=== PATIENT | male | born 1975 | race Caucasian/White ===

== ENCOUNTER 2017-02-26 16:37 | Emergency (ER) | payer BC ==
[2017-02-26 16:50] VITALS: BP 153/98
--- NOTE | 2017-02-26 17:03 | UC ---
Lower Extremity/Ankle HPI - HPI Summary HPI Summary: hx of gout, having an infalmmation of the right great toe and ankle, stiffness and pain. - History of Current Complaint Chief Complaint: UCLowerExtremity Stated Complaint: RT FOOT PAIN Time Seen by Provider: 02/26/17 16:42 Hx Obtained From: Patient Onset/Duration: Sudden Onset, Lasting Days Severity Initially: Mild Severity Currently: Moderate Aggravating Factor(s): Standing, Nothing Alleviating Factor(s): Nothing Able to Bear Weight: Yes - Risk Factors Gout Risk Factors: Age Over 40, Male, Hypertension - Allergies/Home Medications Allergies/Adverse Reactions: Allergies Allergy/AdvReac Type Severity Reaction Status Date / Time No Known Allergies Allergy Verified 02/26/17 16:43 Home Medications: Home Medications amLODIPine TAB* [Norvasc 5 mg TAB*] 5 mg DAILY 02/26/17 [History Confirmed 02/26] PMH/Surg Hx/FS Hx/Imm Hx Previously Healthy: Yes - Surgical History Surgical History: Yes Surgery Procedure, Year, and Place: RIGHT FOOT- PLATE - Family History Known Family History: Positive: Cardiac Disease, Hypertension - Social History Alcohol Use: None Substance Use Type: None Smoking Status (MU): Never Smoked Tobacco - Immunization History Most Recent Influenza Vaccination: none 2017 Review of Systems Constitutional: Negative Skin: Negative Eyes: Negative ENT: Negative Respiratory: Negative Cardiovascular: Negative Gastrointestinal: Negative Genitourinary: Negative Motor: Negative Neurovascular: Negative Musculoskeletal: Arthralgia, Decreased ROM Neurological: Negative Psychological: Negative All Other Systems Reviewed And Are Negative: Yes Physical Exam Triage Information Reviewed: Yes Appearance: Well-Appearing, Well-Nourished, Pain Distress Vital Signs: Initial Vital Signs Temp 97.8 F 02/26/17 16:44 Pulse 75 02/26/17 16:44 Resp 16 02/26/17 16:44 BP 153/98 02/26/17 16:44 Pulse Ox 99 02/26/17 16:44 Vital Signs Reviewed: Yes Eye Exam: Normal ENT Exam: Normal ENT: Positive: Hearing grossly normal, Pharynx normal, TMs normal Dental Exam: Normal Neck exam: Normal Neck: Positive: Supple, Nontender, No Lymphadenopathy Respiratory Exam: Normal Respiratory: Positive: Chest non-tender, Lungs clear, Normal breath sounds Cardiovascular Exam: Normal Cardiovascular: Positive: RRR, No Murmur, Brisk Capillary Refill Abdominal Exam: Normal Abdomen Description: Positive: Nontender, No Organomegaly, Soft Bowel Sounds: Positive: Present Musculoskeletal: Positive: Strength Intact, ROM Intact, Edema @ Neurological Exam: Normal Neurological: Positive: Alert, Muscle Tone Normal Psychological Exam: Normal Skin: Positive: Other - slight erythema of the foot noted, Lower Extremity Course/Dx - Course Course Of Treatment: hx obtained, exam performed ,meds reviewed, treated for gout exacerbation and adivsed to follow up with PCP this week - Differential Dx/Diagnosis Differential Diagnosis/HQI/PQRI: Contusion, Gout, Infection, Sprain, Strain Provider Diagnoses: gout in right foot Discharge - Discharge Plan Condition: Stable Disposition: HOME Prescriptions: predniSONE TAB* [Deltasone TAB*] 20 mg PO DAILY #11 tab Patient Education Materials: Gout (ED) Additional Instructions: 1. take the medication as prescribed. 2.follow up with your doctor for further evaluation
== END 2017-02-26 17:24 | disposition home or self-care (01) ==
LOC: UCCORT 16:37
DX: M10.9 Gout, unspecified (principal)
CPT/HCPCS: 99212; G0463

== ENCOUNTER 2017-09-24 10:10 | Emergency (ER) | payer BC ==
[2017-09-24 10:28] VITALS: BP 137/89
--- NOTE | 2017-09-24 11:24 | UC ---
Lower Extremity/Ankle HPI - HPI Summary HPI Summary: 41 yo WM c/o left 1st MP gouty attack, last year it was in left foot, has difficulty bearing weight - History of Current Complaint Chief Complaint: UCLowerExtremity Stated Complaint: LEFT FOOT PAIN Time Seen by Provider: 09/24/17 10:43 Onset/Duration: Sudden Onset Severity Currently: Moderate Pain Intensity: 8 Aggravating Factor(s): Standing Alleviating Factor(s): Rest - Risk Factors Gout Risk Factors: Age Over 40, Male, Obesity - Allergies/Home Medications Allergies/Adverse Reactions: Allergies Allergy/AdvReac Type Severity Reaction Status Date / Time No Known Allergies Allergy Verified 09/24/17 10:28 Home Medications: Home Medications Metoprolol Tartrate [Lopressor] 50 mg PO DAILY 09/24/17 [History Confirmed 09/24] PMH/Surg Hx/FS Hx/Imm Hx Previously Healthy: Yes - Surgical History Surgical History: Yes Surgery Procedure, Year, and Place: RIGHT FOOT- PLATE - Family History Known Family History: Positive: Cardiac Disease, Hypertension - Social History Alcohol Use: Occasionally Substance Use Type: None Smoking Status (MU): Never Smoked Tobacco - Immunization History Most Recent Influenza Vaccination: none 2016 Review of Systems Constitutional: Negative Skin: Negative Eyes: Negative ENT: Negative Respiratory: Negative Cardiovascular: Negative Gastrointestinal: Negative Genitourinary: Negative Motor: Negative Neurovascular: Negative Musculoskeletal: Arthralgia - recurrent gouty flare Neurological: Negative Psychological: Negative All Other Systems Reviewed And Are Negative: Yes Physical Exam Triage Information Reviewed: Yes Appearance: Pain Distress Vital Signs: Initial Vital Signs Temp 36.4 C 09/24/17 10:23 Pulse 80 09/24/17 10:23 Resp 18 09/24/17 10:23 BP 137/89 09/24/17 10:23 Pulse Ox 100 09/24/17 10:23 Eye Exam: Normal ENT Exam: Normal Dental Exam: Normal Neck exam: Normal Respiratory Exam: Normal Cardiovascular Exam: Normal Musculoskeletal: Positive: Other: - erythema, exquistie TTP on left 1st MTJ, mild swelling Neurological Exam: Normal Psychological Exam: Normal Lower Extremity Course/Dx - Differential Dx/Diagnosis Provider Diagnoses: left 1st MT gouty flare Discharge - Sign-Out/Discharge Documenting (check all that apply): Discharge/Admit/Transfer - Discharge Plan Condition: Stable Disposition: HOME Prescriptions: Indomethacin CAP* [Indocin CAP*] 50 mg PO TID PRN 10 Days #30 cap PRN Reason: Pain Patient Education Materials: Gout (ED), Low Purine Diet (ED) Referrals: NO Roldan [Primary Care Provider] - - Billing Disposition and Condition Condition: STABLE Disposition: HOME
== END 2017-09-24 11:24 | disposition home or self-care (01) ==
LOC: UCCORT 10:10
DX: M10.9 Gout, unspecified (principal)
CPT/HCPCS: 99212; G0463

== ENCOUNTER 2018-02-18 15:35 | Emergency (ER) | payer BC ==
[2018-02-18 16:07] VITALS: BP 147/100
[2018-02-18] MEDS ORDERED: Triamcinolone Acetonide* 40 MG/ML 1 ML VIAL INTRAARTIC ONE (16:18)
[2018-02-18] MEDS ORDERED: Lidocaine 1% MPF* 2 ML VIAL INJ ONE (16:18)
[2018-02-18] MEDS ORDERED: Bupivacaine 0.5%* 50 ML VIAL INJ ONE (16:18)
--- NOTE | 2018-02-18 16:18 | UC ---
Shoulder Pain HPI - HPI Summary HPI Summary: C/O right shoulder pain x 3 days. Worse every day. Unable to lift arm up. No numbness or weakness - History of Current Complaint Chief Complaint: UCUpperExtremity Stated Complaint: RT SHOULDER INJURY Hx Obtained From: Patient Onset/Duration: Sudden Onset, Lasting Days - 3, Worse Since - onset Timing: Constant Severity Initially: Moderate Severity Currently: Severe Location Of Pain: Is Discrete @ - right shoulder Pain Intensity: 9 Character: Sharp, Dull, Aching Aggravating Factor(s): Movement, Flexion, Internal Rotation, External Rotation, Abduction Alleviating Factor(s): Nothing Associated Signs And Symptoms: Positive: Negative Related History: Dominant Hand Right - Allergies/Home Medications Allergies/Adverse Reactions: Allergies Allergy/AdvReac Type Severity Reaction Status Date / Time No Known Allergies Allergy Verified 02/18/18 16:08 PMH/Surg Hx/FS Hx/Imm Hx Cardiovascular History: Hypertension - Surgical History Surgical History: Yes Surgery Procedure, Year, and Place: RIGHT FOOT- PLATE - Family History Known Family History: Positive: Cardiac Disease, Hypertension - Social History Occupation: Employed Full-time Lives: With Family Alcohol Use: Occasionally Substance Use Type: None Smoking Status (MU): Never Smoked Tobacco - Immunization History Most Recent Influenza Vaccination: none 2017 Review of Systems Musculoskeletal: Arthralgia - right shoulder Is Patient Immunocompromised?: No All Other Systems Reviewed And Are Negative: Yes Physical Exam Triage Information Reviewed: Yes Appearance: Well-Appearing, Pain Distress, Obese Vital Signs: Initial Vital Signs Temp 98.8 F 02/18/18 16:03 Pulse 72 02/18/18 16:03 Resp 18 02/18/18 16:03 BP 147/100 02/18/18 16:03 Pulse Ox 99 02/18/18 16:03 Vital Signs Reviewed: Yes Eyes: Positive: Conjunctiva Clear Neck: Positive: Supple Respiratory Exam: Normal Cardiovascular Exam: Normal Musculoskeletal: Positive: Strength Limited @ - internal/ external/ flexion/ extension with pain., ROM Limited @ - right shoulder flexion/ extension/ abduction, Other: - Tender around the shoulder cap. Neurological Exam: Normal - Normal sensation to pinprick in the right shoulder/ upper arm Psychological Exam: Normal Skin Exam: Normal Procedures - Procedure Summary Procedure Summary: Right subacromial injection: Consent and time out done. Betadine prep. 8cc total injected from a posterior approach. 1cc kenalog 40, 3cc lidocaine 1% and 4cc 0.25% marcaine. No improvement in pain symptoms after injection. Diagnostics - Radiology No standard instances Xray Interpretation: No Acute Changes Radiology Interpretation Completed By: ED Physician, Radiologist Shoulder Course/Dx - Course Course Of Treatment: Subacromial bursa injection without relief. Some relief with the toradol. - Differential Dx/Diagnosis Differential Diagnosis/HQI/PQRI: Arthritis, Bursitis, Rotator Cuff Injury, Tendonitis Provider Diagnoses: Right shoulder pain. Discharge - Sign-Out/Discharge Documenting (check all that apply): Patient Departure All imaging exams completed and their final reports reviewed: Yes - Discharge Plan Condition: Stable Disposition: HOME Prescriptions: HYDROcodone/ACETAMIN 5-325 MG* [Big Pool 5-325 TAB*] 1 tab PO Q4H PRN #20 tab MDD 6 PRN Reason: Pain - Moderate To Severe Ketorolac TAB * [Toradol TAB *] 10 mg PO Q6H PRN #20 tab PRN Reason: Pain - Mild To Moderate Patient Education Materials: Shoulder Pain (ED), Cortisone (Injection), Ketorolac (By injection) Forms: *Work Release Referrals: NO Roldan [Primary Care Provider] - Kamlesh Tsang MD [Medical Doctor] - 2 Days (If shoulder pain is not better.) - Billing Disposition and Condition Condition: STABLE Disposition: Home
[2018-02-18] MEDS ORDERED: Bupivacaine 0.25% SDV PF* 10 ML VIAL INJ ONE (16:23)
[2018-02-18] MEDS ORDERED: Ketorolac INJ* 60 MG/2 ML VIAL IM ONE (16:36)
--- NOTE | 2018-02-18 17:03 | RAD ---
HISTORY: Pain, trauma COMPARISONS: None VIEWS: 4 , Frontal internal rotation, external rotation, outlet, and axillary views of the right shoulder. There is minimal excursion with internal and external rotation. FINDINGS: BONE DENSITY: Normal. BONES: There is no displaced fracture. JOINTS: There is no arthropathy. ALIGNMENT: There is no dislocation. SOFT TISSUES: Unremarkable. OTHER FINDINGS: None. IMPRESSION: NO ACUTE OSSEOUS INJURY. IF SYMPTOMS PERSIST, RECOMMEND REPEAT IMAGING.
== END 2018-02-18 17:29 | disposition home or self-care (01) ==
LOC: UCCORT 15:35
DX: M25.511 Pain in right shoulder (principal); I10 Essential (primary) hypertension
CPT/HCPCS: 20605; 96372; 99213; G0463; J1885; J3301; J3490

== ENCOUNTER 2019-01-20 10:55 | Emergency (ER) | payer BC ==
--- NOTE | 2019-01-20 12:08 | UC ---
Upper Extremity HPI - HPI Summary HPI Summary: L wrist pain for approx 5 days. Feels its swollen and achey. denies injury or fall. he's not sure if he has gout. has hx of one gout episode in his R large toe. He has psoriasis. Also c/o L/R ankle soreness. he will be seeing rheum tomorrow.\ - History of Current Complaint Chief Complaint: UCGeneralIllness Stated Complaint: LEFT WRIST PAIN Time Seen by Provider: 01/20/19 12:08 Hx Obtained From: Patient Onset/Duration: Gradual Onset Severity Initially: Moderate Severity Currently: Moderate Character: Aching Aggravating Factor(s): Movement Alleviating Factor(s): Nothing - Allergies/Home Medications Allergies/Adverse Reactions: Allergies Allergy/AdvReac Type Severity Reaction Status Date / Time No Known Allergies Allergy Verified 01/20/19 12:16 PMH/Surg Hx/FS Hx/Imm Hx - Additional Past Medical History Additional PMH: psoriasis Previously Healthy: Yes - Surgical History Surgical History: Yes Surgery Procedure, Year, and Place: RIGHT FOOT- PLATE - Family History Known Family History: Positive: Cardiac Disease, Hypertension - Social History Alcohol Use: Occasionally Substance Use Type: None Smoking Status (MU): Never Smoked Tobacco - Immunization History Most Recent Influenza Vaccination: none 2017 Review of Systems All Other Systems Reviewed And Are Negative: Yes Constitutional: Negative: Fever Skin: Negative: Rash, Bruising Neurovascular: Negative: Decreased Sensation Musculoskeletal: Positive: Arthralgia - L wrist Neurological: Negative: Weakness, Paresthesia, Numbness Physical Exam Triage Information Reviewed: Yes Appearance: Well-Appearing Vital Signs Reviewed: Yes Respiratory Exam: Normal Cardiovascular Exam: Normal Musculoskeletal: Positive: Edema @ - L wrist w/ mild warmth and little erythema. Somewhat tender but has FROM. good pulses Upper Extremity Course/Dx - Course Course Of Treatment: L wrist pain w/ mild swelling and redness assoc. w/ bilat ankle pain which is not as bad. He initially thought it was Gout. given his hx of psoriasis suspect more psoriatic arthritis flare up. medrol dose pack for now and have asked him to discuss appropriate care for future flare up w/ his rhuem. - Differential Dx/Diagnosis Provider Diagnosis: Multiple joint pain Discharge ED - Sign-Out/Discharge Documenting (check all that apply): Patient Departure All imaging exams completed and their final reports reviewed: No Studies - Discharge Plan Condition: Good Disposition: HOME Prescriptions: methylPREDNISolone [Medrol Dosepak 4 MG*] 0 mg PO .SEE KAAY INSTRUCTION #1 packet Patient Education Materials: Arthritis (ED) Referrals: No Primary Care Phys,NOPCP [Primary Care Provider] - Additional Instructions: please keep your appt with your sports medicine coordinator - Billing Disposition and Condition Condition: GOOD Disposition: Home
[2019-01-20 12:30] VITALS: BP 146/105
== END 2019-01-20 12:47 | disposition home or self-care (01) ==
LOC: UCCORT 10:55
DX: M25.532 Pain in left wrist (principal)
CPT/HCPCS: 99212; G0463

== ENCOUNTER 2019-05-14 10:32 | Emergency (ER) | payer BC ==
--- OUTSIDE RECORDS SUMMARY | 2019-05-14 11:31 | XMS REPORT | Continuity of Care Document ---
:1975 External Reference #:[id number] Author Name Laurel Whitlock M.D. (transmitted by agent of provider Dora Lopez) Address [address] [place] [address] [place] [address] Care Team Providers Name Role Phone Nahomi Fields DO - Internal Care Team Information Outsole Skiver [phone] Medicine Brynn Sousa MD - Family Medicine Care Team Information Outsole Skiver [phone] Problems Active Problems Provider Date Aseptic necrosis of head of femur Laurel Whitlock M.D. Onset: 05/29/2018 Social History Type Date Description Comments Sex Unknown ETOH Use Occasionally consumes alcohol Recreational Drug Use Denies Drug Use Tobacco Use Start: Unknown Patient has never smoked Smoking Status Reviewed: 03/23/19 Patient has never smoked Exercise Type/Frequency Exercises regularly Allergies, Adverse Reactions, Alerts Description No Known Drug Allergies Medications Active Medications SIG Qnty Indications Ordering Provider Date Indomethacin 1 by mouth three 20caps Unknown 50mg times a day as Capsules needed Metoprolol Succinate 1 by mouth every Unknown ER day Tablets ER 24HR Meloxicam 1 by mouth every Unknown 15mg Tablets day Medications Administered in Office Medication SIG Qnty Indications Ordering Provider Date Depomedrol 40MG Laurel Whitlock M.D. 03/23/2019 Injection No Injection Laurel Whitlock M.D. 09/08/2018 Injection Depomedrol 40MG Laurel Whitlock M.D. 09/08/2018 Injection Depomedrol 40MG Laurel Whitlock M.D. 06/05/2018 Injection Immunizations Description No Information Available Vital Signs Date Vital Result Comment 03/23/2019 8:01am Height 74 inches 6'2" Weight 275.00 lb Heart Rate 70 /min BP Systolic 162 mmHg BP Diastolic 102 mmHg Respiratory Rate 16 /min Body Temperature 97.9 F Pain Level 7 O2 % BldC Oximetry 95 % BMI (Body Mass Index) 35.3 kg/m2 09/08/2018 3:25pm Height 74 inches 6'2" Weight 262.00 lb Heart Rate 98 /min BP Systolic 124 mmHg BP Diastolic 88 mmHg Respiratory Rate 16 /min Body Temperature 97.8 F Pain Level 7 BMI (Body Mass Index) 33.6 kg/m2 Results Test Acquired Date Facility Test Result H/L Range Note Xray 03/23/2019 Customer Operations Representative In House Inj/Aspir Major JT Or Bursa <pending> W/ US Procedures Date Code Description Status 03/23/2019 23714 Inj/Aspir Major JT Or Bursa W/ US Completed Medical Devices Description No Information Available Encounters Description No Information Available Assessments Date Code Description Provider 03/23/2019 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 03/23/2019 M25.552 Pain in left hip Laurel Whitlock M.D. Plan of Treatment 03/23/2019 - Laurel Whitlock M.D.M87.052 Idiopathic aseptic necrosis of left femurFollow up:Follow up: Call Dr. Whitlock's Weaver Apprentice, Lea, to schedule surgery.M25.552 Pain in left hip Functional Status Description No Information Available Mental Status Description No Information Available Referrals Description No Information Available
[2019-05-14 11:52] VITALS: BP 158/109
--- NOTE | 2019-05-14 12:06 | UC ---
Lower Extremity/Ankle HPI - HPI Summary HPI Summary: 43 yo male with long hx of gout presents with severe right foot pain was recently on low dose pred which helped some no pred x 4 days has appt with submarine operator tomorrow - History of Current Complaint Chief Complaint: UCLowerExtremity Stated Complaint: RT FOOT COMP Time Seen by Provider: 05/14/19 11:44 Hx Obtained From: Patient Onset/Duration: Gradual Onset Severity Initially: Mild Severity Currently: Severe Pain Intensity: 8 Pain Scale Used: 0-10 Numeric Aggravating Factor(s): Standing, Ambulation Alleviating Factor(s): Rest, Elevation Able to Bear Weight: No Feet (Multiple View): 1 - pain 2 - pain - Allergies/Home Medications Allergies/Adverse Reactions: Allergies Allergy/AdvReac Type Severity Reaction Status Date / Time No Known Allergies Allergy Verified 05/14/19 11:44 Home Medications: Home Medications Ibuprofen [Advil] 800 mg PO DAILY 05/14/19 [History Confirmed 05/14/19] PMH/Surg Hx/FS Hx/Imm Hx Previously Healthy: Yes - gout Endocrine History: Dyslipidemia Cardiovascular History: Hypertension - Surgical History Surgical History: Yes Surgery Procedure, Year, and Place: RIGHT FOOT- PLATE - Family History Known Family History: Positive: Cardiac Disease, Hypertension - Social History Alcohol Use: Occasionally Substance Use Type: None Smoking Status (MU): Never Smoked Tobacco - Immunization History Most Recent Influenza Vaccination: none 2016 Review of Systems All Other Systems Reviewed And Are Negative: Yes Constitutional: Positive: Negative Skin: Positive: Negative Eyes: Positive: Negative ENT: Positive: Negative Respiratory: Positive: Negative Cardiovascular: Positive: Negative Gastrointestinal: Positive: Negative Genitourinary: Positive: Negative Motor: Positive: Negative Neurovascular: Positive: Negative Musculoskeletal: Positive: Arthralgia Neurological: Positive: Negative Psychological: Positive: Negative Physical Exam Triage Information Reviewed: Yes Appearance: Well-Appearing, No Pain Distress, Well-Nourished Vital Signs: Initial Vital Signs Temp 98.6 F 05/14/19 11:46 Pulse 72 05/14/19 11:46 Resp 20 05/14/19 11:46 BP 158/109 05/14/19 11:46 Pulse Ox 98 05/14/19 11:46 Vital Signs Reviewed: Yes Eyes: Positive: Conjunctiva Clear ENT: Positive: Hearing grossly normal. Negative: Nasal congestion, Nasal drainage Dental Exam: Normal Neck: Positive: Supple, Nontender, No Lymphadenopathy Respiratory: Positive: Lungs clear, Normal breath sounds, No respiratory distress Cardiovascular: Positive: RRR, No Murmur Musculoskeletal: Positive: Other: - see image Neurological: Positive: Alert Psychological Exam: Normal Skin: Positive: Other - warm right foot Lower Extremity Course/Dx - Differential Dx/Diagnosis Provider Diagnosis: Gouty arthritis Discharge ED - Sign-Out/Discharge Documenting (check all that apply): Patient Departure All imaging exams completed and their final reports reviewed: No Studies - Discharge Plan Condition: Stable Disposition: HOME Prescriptions: predniSONE [Prednisone 20 MG TAB] 60 mg PO DAILY #6 tab Patient Education Materials: Low Purine Diet (ED), Gout (ED) Referrals: No Primary Care Phys,NOPCP [Primary Care Provider] - Additional Instructions: see specialist tomorrow as planned - Billing Disposition and Condition Condition: STABLE Disposition: Home
[2019-05-14] MEDS ORDERED: HYDROcodone/ACETAMIN 5-325 MG* 1 TAB PO ONE (12:08)
== END 2019-05-14 12:30 | disposition home or self-care (01) ==
LOC: UCCORT 10:32
DX: M10.9 Gout, unspecified (principal); I10 Essential (primary) hypertension
CPT/HCPCS: 99212; G0463; J7512

== ENCOUNTER 2020-06-17 08:11 | Observation (INO) ==
[~2020-06-17 08:11] MED LIST: Buffered Lidocaine 1% SYRIN 1 ml INTRADERM ONE; Lactated Ringers 1000 ml BAG 1,000 ML IV SCH
[2020-06-17] MEDS ORDERED: ceFAZolin 1 GM ADVAN 1 GM ADDV.VIAL IVPB ONE (08:15)
[2020-06-17] MEDS ORDERED: ceFAZolin 2 GM PREMIX 2 GM/50 ML BAG ONE (08:15)
[2020-06-17] MEDS ORDERED: diPHENhydraMINE IV 50 MG/ML 1 ml VIAL (BENADRYL) ONE (08:25)
[2020-06-17] MEDS ORDERED: Midazolam 2 mg/2 ml VIAL 1 mg/ml 2 ml VIAL (2 mg) ONE (08:25)
[2020-06-17] MEDS ORDERED: fentaNYL 100 mcg/2 ml 50 MCG/ML VIAL ONE ×3 (08:25→14:18)
[2020-06-17] MEDS ORDERED: Propofol 10 MG/ML 20 ML BTL ONE ×2 (11:12→11:56)
[2020-06-17] MEDS ORDERED: Naloxone 0.4 mg VIAL 0.4 mg/ml 1 ml VIAL IV PRN (11:51)
[2020-06-17] MEDS ORDERED: diPHENhydraMINE IV 50 MG/ML 1 ml VIAL (BENADRYL) IV PRN ×2 (11:51→11:53)
[2020-06-17] MEDS ORDERED: diPHENhydraMINE 25 mg TAB PO PRN (11:53)
[2020-06-17] MEDS ORDERED: Lactulose 30 ml UDC PO PRN (11:53)
[2020-06-17] MEDS ORDERED: Ondansetron 4 mg VIAL 2 MG/ML 2 ml VIAL IV PRN (11:53)
[2020-06-17] MEDS ORDERED: Morphine 2 MG/ML SYRINGE IV PRN (11:53)
[2020-06-17] MEDS ORDERED: Magnesium Hydroxide LIQ 30 ML UDC PO PRN (11:53)
[2020-06-17] MEDS ORDERED: Ondansetron ODT 4 mg TAB 4 MG TAB PO PRN (11:53)
[2020-06-17] MEDS: fentaNYL 100 mcg/2 ml 50 MCG/ML VIAL IV PRN ×5 (13:12→14:19)
[2020-06-17] MEDS ORDERED: hydrALAZINE 20 mg/ml 1 ML Vial IV ONE (13:57)
[2020-06-17] MEDS ORDERED: hydrALAZINE 20 mg/ml 1 ML Vial IV IV SLOW PU ONE (14:16)
[2020-06-17] MEDS: Lactated Ringers 1000 ml BAG 1,000 ML IV SCH (15:06)
[2020-06-17] MEDS: ceFAZolin 1 GM ADVAN 1 GM in NS 0.9% 50 ML 50 ML IVPB SCH (18:33)
[2020-06-17] MEDS: Magnesium Hydroxide LIQ 30 ML UDC PO SCH (19:49)
[2020-06-17] MEDS: oxyCODONE/Acetamin 5/325 mg TAB PO PRN ×2 (19:50→23:48)
[2020-06-17] MEDS ORDERED: Metoprolol Succinate XL 200 mg TAB PO SCH (21:00)
[2020-06-18] MEDS: ceFAZolin 1 GM ADVAN 1 GM in NS 0.9% 50 ML 50 ML IVPB SCH ×2 (01:57→10:42)
[2020-06-18] MEDS: oxyCODONE/Acetamin 5/325 mg TAB PO PRN ×3 (03:52→13:15)
[2020-06-18] MEDS: Lactated Ringers 1000 ml BAG 1,000 ML IV SCH (03:53)
[2020-06-18 06:01] LABS: Hematocrit 38 % (42-52); Hemoglobin 12.8 g/dL (14.0-18.0); Mean Platelet Volume 8.2 fL (7.4-10.4); Platelet Count 183 10^3/uL (150-450)
[2020-06-18 06:22] LABS: BUN/Creatinine Ratio 25.6 (8-20); Calcium 8.7 mg/dL (8.6-10.3); EGFR African American 116.4 (>60); EGFR Non-African American 96.2 (>60); Potassium 4.2 mmol/L (3.5-5.0)
[2020-06-18] MEDS ORDERED: Vitamin THERAPEUTIC TAB PO SCH (09:00)
[2020-06-18] MEDS ORDERED: Metoprolol Succinate XL 200 mg TAB PO SCH (09:00)
[2020-06-18] MEDS: Magnesium Hydroxide LIQ 30 ML UDC PO SCH (09:07)
[2020-06-18 12:15] VITALS: BP 153/86
== END 2020-06-18 13:45 | disposition home or self-care (01) ==
LOC: SSU 08:11 → OR 08:11 → EDSTATUS 13:30
PROVIDERS: ADMIT Orthopaedic Surgery Adult Reconstructive Orthopaedic Surgery; ATTEND Orthopaedic Surgery Adult Reconstructive Orthopaedic Surgery